=== PATIENT | male | born 1970 | race Caucasian/White ===

== ENCOUNTER 2024-09-04 00:32 | Inpatient (IN) | payer OTHER ==
[~2024-09-04] VITALS: Ht 180.3 cm; Wt 62.2 kg
[2024-09-04 00:35] VITALS: BP 139/77
[2024-09-04 00:49] LABS: BASO % 0.4 % (0.0-1.0); EOS # 0.5 10*3/uL (0.0-0.4); EOS % 5.8 % (1.0-4.0); HEMATOCRIT 39.6 % (42.0-52.0); MEAN CELL VOLUME 100.5 fl (80.0-94.0); MEAN CORPUSCULAR HGB 34.3 pg (27.0-31.0); MEAN CORPUSCULAR HGB CONC 34.1 g/dl (33.0-37.0); MEAN PLATELET VOLUME 8.3 fl (9.6-12.3); MONO % 10.8 % (3.0-9.0); NEUT # 5.4 10*3/uL (2.3-7.9); NEUT % 58.8 % (47.0-73.0); PLATELET COUNT AUTOMATED 284 10*3/uL (130-400); RED BLOOD COUNT 3.94 10*6/uL (4.50-5.90); RED CELL DISTRI WIDTH 13.2 % (0-14.5); WHITE BLOOD COUNT 9.1 10*3/uL (4.8-10.8)
[2024-09-04 01:10] LABS: ALKALINE PHOSPHATASE 127 U/L (46-116); BUN 11 mg/dl (9-23); CHLORIDE 107 mmol/L (98-107); POTASSIUM 3.7 mmol/L (3.4-5.1); SGPT/ALT 28 U/L (5-49); TOTAL PROTEIN 6.5 gm/dL (6.0-8.0)
[2024-09-04 01:11] LABS: ETHYL ALCOHOL < 3.0 mg/dl (<3)
[2024-09-04 02:28] VITALS: BP 127/67
[2024-09-04 04:36] VITALS: BP 112/63
[2024-09-04 05:34] VITALS: BP 158/74
[2024-09-04 06:48] LABS: BILIRUBIN Negative (Negative); BLOOD Negative (Negative); CLARITY Clear (Clear); COLOR Yellow (Yellow); GLUCOSE Negative (Negative); KETONE Negative (Negative); LEUKO ESTERASE Negative (Negative); NITRITE Negative (Negative); SPECIFIC GRAVITY 1.015 (1.001-1.030); UROBILINOGEN 0.2 E.U./dl (0.0-1.0)
[2024-09-04 06:55] LABS: URINE AMPHETAMINES Negative (1000ng/ml); URINE BARBITURATES Negative (200ng/ml); URINE BENZODIAZEPINES Negative (200ng/ml); URINE CANNABINOIDS (THC) Negative (50ng/ml); URINE COCAINE Negative (300ng/ml); URINE METHADONE Negative (300ng/ml); URINE OPIATES Negative (300ng/ml); URINE PHENCYCLIDINE Negative (25ng/ml)
[2024-09-04 07:02] LABS: CALCIUM OXALATE CRYSTALS Trace; EPITHELIAL CELLS 0-2; MUCOUS TRACE; RBC 0-2 rbc/hpf (0-2); WBC 0-2 wbc/hpf (0-5)
[2024-09-04] MEDS ORDERED: IBUPROFEN 800 MG TAB PO ONE (12:40)
[2024-09-04] MEDS ORDERED: Magnesium Hydroxide 30 ML UDC PO PRN (13:20)
[2024-09-04] MEDS ORDERED: LORazepam 1 MG TAB PO PRN (13:20)
[2024-09-04] MEDS ORDERED: LORazepam 2 MG/ML VIAL IM PRN (13:20)
[2024-09-04] MEDS ORDERED: MG-AL HYDROXIDE/SIMETICONE 30 ML UDC PO PRN (13:20)
[2024-09-04] MEDS ORDERED: ACETAMINOPHEN 325 MG TAB PO PRN (13:20)
[2024-09-04] MEDS ORDERED: Ziprasidone Mesylate 20 MG VIAL IM PRN (13:25)
[2024-09-04 15:29] VITALS: BP 140/78
[2024-09-04] MEDS ORDERED: ZOLOFT100 MG PO (16:07)
[2024-09-04] MEDS ORDERED: VENT7GM INH (16:08)
[2024-09-04] MEDS ORDERED: MELOXICAM15 MG PO (16:08)
[2024-09-04] MEDS ORDERED: NEURONTIN300 MG PO (16:09)
[2024-09-04] MEDS ORDERED: PEPCID AC10 M2 PO (16:09)
[2024-09-04] MEDS ORDERED: BACLOFEN5 MG PO (16:10)
[2024-09-04] MEDS ORDERED: TRELEGY ELLIPT1 EACH INH (16:11)
[2024-09-04] MEDS ORDERED: TOPROL XL50 M1 PO (16:12)
[2024-09-04] MEDS ORDERED: WELLBUTRIN XL300 MG PO (16:13)
[2024-09-04] MEDS ORDERED: VISTARIL25 M2 PO (16:14)
[2024-09-04] MEDS ORDERED: LIPITOR20 MG PO (16:30)
[2024-09-04] MEDS ORDERED: OMEPRAZOLE40 MG PO (16:30)
[2024-09-04] MEDS ORDERED: METHOCARBAMOL750 M1 PO (16:31)
[2024-09-04] MEDS ORDERED: Albuterol Sulfate 2.5 MG/3 ML VIAL NEB PRN (17:05)
[2024-09-04] MEDS ORDERED: hydrOXYzine pamoate 25 MG CAP PO PRN (17:40)
[2024-09-04] MEDS ORDERED: BENADRYL ALLERG50 MG PO (17:41)
[2024-09-04] MEDS ORDERED: METHOCARBAMOL 750 MG TAB PO SCH (18:00)
[2024-09-04 20:00] VITALS: BP 147/75
[2024-09-04] MEDS ORDERED: Dicyclomine Hydrochloride 20 MG TAB PO PRN (20:30)
[2024-09-04] MEDS ORDERED: METHOCARBAMOL 750 MG TAB PO PRN (20:30)
[2024-09-04] MEDS ORDERED: hydrOXYzine 50 MG CAP PO PRN (20:30)
[2024-09-04] MEDS ORDERED: Water, Sterile 10 ML VIAL IV PRN (20:30)
[2024-09-04] MEDS ORDERED: LORazepam 2 MG/ML VIAL IV PRN (20:30)
[2024-09-04] MEDS ORDERED: MULTIVITAMIN CONCENTRATE (IV) 10 ML,Thiamine 100 MG,FOLIC ACID 1 MG in SODIUM CHLORIDE ... IV ONE (20:30)
[2024-09-04] MEDS ORDERED: Loperamide Hydrochloride 2 MG CAP PO PRN ×2 (20:30)
[2024-09-04] MEDS ORDERED: FOLIC ACID 1 MG TAB PO ONE (20:35)
[2024-09-04] MEDS ORDERED: LORazepam 0.5 MG TAB PO SCH (21:00)
[2024-09-04] MEDS ORDERED: Duloxetine Hydrochloride 30 MG CAP PO SCH (21:00)
[2024-09-04] MEDS ORDERED: GABAPENTIN 300 MG CAP PO SCH (21:00)
[2024-09-04] MEDS ORDERED: MAGNESIUM SULFATE 4 GM/100 ML IVB IV ONE (21:00)
[2024-09-04] MEDS ORDERED: Thiamine 100 MG TAB PO SCH (22:00)
[2024-09-04] MEDS ORDERED: Mirtazapine 15 MG TAB PO SCH (22:00)
[2024-09-04] MEDS ORDERED: Thiamine 200 MG/2 ML VIAL IV SCH (22:00)
[2024-09-04] MEDS ORDERED: LORazepam 1 MG TAB PO SCH (22:00)
[2024-09-04] MEDS ORDERED: TRAZODONE150 MG PO (22:10)
[2024-09-05] MEDS ORDERED: OMEPRAZOLE 20 MG CAP PO SCH (06:00)
[2024-09-05 06:40] LABS: BASO % 0.6 % (0.0-1.0); EOS # 0.4 10*3/uL (0.0-0.4); EOS % 6.9 % (1.0-4.0); HEMATOCRIT 42.1 % (42.0-52.0); MEAN CORPUSCULAR HGB 34.2 pg (27.0-31.0); MEAN CORPUSCULAR HGB CONC 34.2 g/dl (33.0-37.0); MEAN PLATELET VOLUME 8.7 fl (9.6-12.3); MONO # 0.7 10*3/uL (0.1-1.0); MONO % 11.1 % (3.0-9.0); NEUT # 3.4 10*3/uL (2.3-7.9); NEUT % 53.9 % (47.0-73.0); PLATELET COUNT AUTOMATED 277 10*3/uL (130-400); RED BLOOD COUNT 4.21 10*6/uL (4.50-5.90); RED CELL DISTRI WIDTH 13.1 % (0-14.5); WHITE BLOOD COUNT 6.2 10*3/uL (4.8-10.8)
[2024-09-05 08:00] VITALS: BP 138/83
[2024-09-05 08:13] LABS: ALKALINE PHOSPHATASE 138 U/L (46-116); BUN 11 mg/dl (9-23); CHLORIDE 105 mmol/L (98-107); CHOLESTEROL 137 mg/dL (<200); LDL CHOLESTEROL 70 mg/dL (9-159); POTASSIUM 3.9 mmol/L (3.4-5.1); SGPT/ALT 23 U/L (5-49); TOTAL PROTEIN 6.8 gm/dL (6.0-8.0); TRIGLYCERIDES 70 mg/dl (<150)
[2024-09-05] MEDS ORDERED: ATORVASTATIN CALCIUM 20 MG TAB PO SCH (09:00)
[2024-09-05] MEDS ORDERED: Meloxicam 15 MG TAB PO SCH (09:00)
[2024-09-05] MEDS ORDERED: METOPROLOL SUCCINATE XR 50 MG TAB PO SCH (09:00)
[2024-09-05] MEDS ORDERED: FOLIC ACID 1 MG TAB PO SCH (10:00)
[2024-09-05] MEDS ORDERED: MULTIVITAMIN 1 TAB TAB PO SCH (10:00)
[2024-09-05] MEDS ORDERED: Pneumococcal Vaccine Polyval 0.5 ML SYR IM ONE (10:00)
[2024-09-05 10:18] LABS: VITAMIN D, 25-HYDROXY 44.9 ng/mL (30-100)
[2024-09-05 20:00] VITALS: BP 135/76
[2024-09-05] MEDS ORDERED: Duloxetine Hydrochloride 60 MG CAP PO SCH (21:00)
[2024-09-06] MEDS ORDERED: LORazepam 1 MG TAB PO SCH
[2024-09-06 08:00] VITALS: BP 142/80
[2024-09-06] MEDS ORDERED: Paliperidone 3 MG TER PO SCH (09:00)
[2024-09-06] MEDS ORDERED: Thiamine 100 MG TAB PO SCH (10:00)
[2024-09-06] MEDS ORDERED: FAMOTIDINE 10 MG TAB PO SCH (10:00)
[2024-09-06 20:00] VITALS: BP 106/56
[2024-09-06] MEDS ORDERED: LURASIDONE HYDROCHLORIDE 20 MG TAB PO SCH (21:00)
[2024-09-07] MEDS ORDERED: LORazepam 1 MG TAB PO PRN
[2024-09-07 08:09] VITALS: BP 141/70
[2024-09-07] MEDS ORDERED: Duloxetine Hydrochloride 30 MG CAP PO SCH (10:25)
[2024-09-07] MEDS ORDERED: GABAPENTIN 300 MG CAP PO SCH (14:00)
[2024-09-07] MEDS ORDERED: BENZOCAINE 20% 9 GM TUBE T PRN (18:20)
[2024-09-07 20:00] VITALS: BP 112/69
[2024-09-07] MEDS ORDERED: LURASIDONE HYDROCHLORIDE 40 MG TAB PO SCH (21:00)
[2024-09-08 08:00] VITALS: BP 120/76
[2024-09-08] MEDS ORDERED: GABAPENTIN 400 MG CAP PO SCH (14:00)
[2024-09-08 20:00] VITALS: BP 127/78
[2024-09-09 08:03] VITALS: BP 124/73
[2024-09-09 19:46] VITALS: BP 109/66
[2024-09-10 07:46] VITALS: BP 102/62
[2024-09-10] MEDS ORDERED: RAMELTEON 8 MG TAB PO PRN (08:50)
[2024-09-10] MEDS ORDERED: clonAZEPAM 1 MG TAB PO SCH (09:00)
[2024-09-10 20:00] VITALS: BP 123/79
[2024-09-10] MEDS ORDERED: LURASIDONE HYDROCHLORIDE 20 MG TAB PO SCH (21:00)
[2024-09-11 08:00] VITALS: BP 118/70
[2024-09-11 19:08] VITALS: BP 114/62
[2024-09-12 06:08] LABS: ALKALINE PHOSPHATASE 105 U/L (46-116); BUN 12 mg/dl (9-23); CHLORIDE 105 mmol/L (98-107); POTASSIUM 4.9 mmol/L (3.4-5.1); SGPT/ALT 17 U/L (5-49); TOTAL PROTEIN 6.2 gm/dL (6.0-8.0)
[2024-09-12 06:34] LABS: BASO % 0.3 % (0.0-1.0); EOS # 0.3 10*3/uL (0.0-0.4); EOS % 5.1 % (1.0-4.0); HEMATOCRIT 39.4 % (42.0-52.0); MEAN CELL VOLUME 102.3 fl (80.0-94.0); MEAN CORPUSCULAR HGB 34.5 pg (27.0-31.0); MEAN CORPUSCULAR HGB CONC 33.8 g/dl (33.0-37.0); MEAN PLATELET VOLUME 9.2 fl (9.6-12.3); MONO # 0.9 10*3/uL (0.1-1.0); MONO % 15.4 % (3.0-9.0); NEUT % 50.9 % (47.0-73.0); PLATELET COUNT AUTOMATED 251 10*3/uL (130-400); RED BLOOD COUNT 3.85 10*6/uL (4.50-5.90); RED CELL DISTRI WIDTH 12.8 % (0-14.5); WHITE BLOOD COUNT 5.9 10*3/uL (4.8-10.8)
[2024-09-12 08:23] VITALS: BP 128/70
[2024-09-12 20:00] VITALS: BP 119/66
[2024-09-13 07:51] VITALS: BP 122/76
[2024-09-13] MEDS ORDERED: DULOXETINE HCL60 MG PO (09:28)
[2024-09-13] MEDS ORDERED: LATU20TA PO (09:28)
[2024-09-13] MEDS ORDERED: CLONAZEPAM1 MG PO (09:28)
[2024-09-13] MEDS ORDERED: GABAPENTIN400 MG PO (09:28)
[2024-09-13] MEDS ORDERED: DULOXETINE HCL30 MG PO (09:28)
[2024-09-13] MEDS ORDERED: clonAZEPAM 0.5 MG TAB PO SCH (13:00)
[2024-09-13 20:00] VITALS: BP 120/64
[2024-09-13] MEDS ORDERED: FLUTICASONE PROPIONATE Nasal 16 Gm spray NAS SCH (21:00)
[2024-09-14 08:00] VITALS: BP 132/59
== END 2024-09-14 12:25 | disposition home or self-care (01) | DRG 885 ==
LOC: ED 00:32 → 3N 10:23 → EDHOLD 10:23 → 3N 16:23
PROVIDERS: Internal Medicine; Nurse Practitioner; ADMIT Psychiatry & Neurology Psychiatry; ATTEND Psychiatry & Neurology Psychiatry
PROC: GZHZZZZ Group Psychotherapy (ICD-10-PCS; principal; 2024-09-05)
PROC: GZ51ZZZ Individual Psychotherapy, Behavioral (ICD-10-PCS; 2024-09-05)
DX: F31.4 Bipolar disorder, current episode depressed, severe, without psychotic features (principal); R45.851 Suicidal ideations; F43.21 Adjustment disorder with depressed mood; D53.9 Nutritional anemia, unspecified; I10 Essential (primary) hypertension; J41.0 Simple chronic bronchitis; J45.20 Mild intermittent asthma, uncomplicated; F17.210 Nicotine dependence, cigarettes, uncomplicated; F41.1 Generalized anxiety disorder; M51.379 Other intervertebral disc degeneration, lumbosacral region without mention of lumbar back pain or lower extremity pain; Z86.73 Personal history of transient ischemic attack (TIA), and cerebral infarction without residual deficits; Z90.49 Acquired absence of other specified parts of digestive tract; Z88.6 Allergy status to analgesic agent; Z79.51 Long term (current) use of inhaled steroids; Z79.899 Other long term (current) drug therapy